=== PATIENT | male | born 1935 | race Caucasian/White ===

== ENCOUNTER 2024-03-08 10:06 | Emergency (ER) | payer MEDICARE, OTHER ==
[~2024-03-08] VITALS: Ht 175.3 cm; Wt 68.0 kg
[2024-03-08 10:54] LABS: BASOPHILS % (AUTO) 0.4 % (0.0-2.0); EOSINOPHILS % (AUTO) 0.4 % (0.0-7.0); HEMATOCRIT 36.4 % (36.7-47.1); HEMOGLOBIN 12.6 g/dL (12.5-16.3); LYMPHOCYTES # (AUTO) 0.5 K/uL (0.8-4.8); LYMPHOCYTES % (AUTO) 7.1 % (20.5-51.5); MEAN CORPUSCULAR HEMOGLOBIN 33.6 uug (23.8-33.4); MEAN CORPUSCULAR HGB CONC 35 g/dL (32.5-36.3); MEAN CORPUSCULAR VOLUME 97.1 fL (73.0-96.2); MONOCYTES # (AUTO) 0.7 K/uL (0.1-1.30); MONOCYTES % (AUTO) 9.5 % (0.0-11.0); NEUTROPHILS # (AUTO) 6.3 K/uL (1.8-8.9); NEUTROPHILS % (AUTO) 82.6 % (38.5-71.5); PLATELET COUNT (AUTO) 198 K/uL (152-348); RED BLOOD CELL COUNT(AUTO) 3.75 MIL/uL (4.06-5.63); RED CELL DISTRIBUTION WIDTH 14.2 % (12.1-16.2); WHITE BLOOD COUNT (AUTO) 7.6 K/uL (3.6-10.2)
[2024-03-08 10:58] LABS: DIFFERENTIAL COMMENT 1
[2024-03-08 11:04] LABS: CALCIUM 8.1 mg/dL (8.5-10.1); CARBON DIOXIDE 27 mmol/L (21-32); CHLORIDE 106 mmol/L (98-107); CREATININE 1.2 mg/dL (0.6-1.3); GLUCOSE 132 mg/dL (74-106); POTASSIUM 4.7 mmol/L (3.5-5.1); SODIUM SERUM 141 mmol/L (136-145); UREA NITROGEN, BLOOD 30 mg/dL (7-18)
[2024-03-08 11:13] LABS: ETHANOL < 3 MG/DL (0-10)
[2024-03-08 11:18] LABS: ALANINE AMINOTRANSFERASE 22 U/L (16-63); ALBUMIN 3.2 g/dL (3.4-5.0); ALKALINE PHOSPHATASE 70 U/L (50-136); ASPARTATE AMINOTRANSFERASE 15 U/L (15-37); BILIRUBIN,DIRECT 0.1 mg/dL (0.0-0.2); BILIRUBIN,TOTAL 0.6 mg/dL (0.2-1.0)
[2024-03-08 11:23] LABS: ACETAMINOPHEN < 10.0 ug/mL (10-30)
[2024-03-08 11:24] LABS: AMMONIA < 10 umol/L (11-32)
[2024-03-08] MEDS ORDERED: CLOP75TA33 PO (11:24)
[2024-03-08] MEDS ORDERED: LEVO25TA9 PO (11:24)
[2024-03-08] MEDS ORDERED: TRIA1CAP19 PO (11:24)
[2024-03-08] MEDS ORDERED: ENAL5TAB21 PO (11:24)
[2024-03-08] MEDS ORDERED: EZET10TA32 PO (11:24)
[2024-03-08] MEDS ORDERED: ATOR40TA (11:24)
[2024-03-08 12:17] VITALS: BP 111/75; O2SAT 95
== END 2024-03-08 12:00 | disposition home or self-care (01) ==
LOC: ER 10:06
DX: R55 Syncope and collapse (principal); R41.82 Altered mental status, unspecified; E78.5 Hyperlipidemia, unspecified; I11.9 Hypertensive heart disease without heart failure; I25.10 Atherosclerotic heart disease of native coronary artery without angina pectoris; Z79.02 Long term (current) use of antithrombotics/antiplatelets; Z79.890 Hormone replacement therapy; Z79.899 Other long term (current) drug therapy; Z95.5 Presence of coronary angioplasty implant and graft
CPT/HCPCS: 36415; 70450; 71045; 83605; 84484; 85025; 85730; 87040; A4606; A4663; G0480